=== PATIENT | male | born 1995 | race Caucasian/White ===

== ENCOUNTER 2017-01-20 03:10 | Emergency (ER) | payer OTHER ==
[~2017-01-20] VITALS: Ht 185.4 cm; Wt 95.2 kg
[~2017-01-20 03:10] MED LIST: AMOXICILLIN500 MG PO; IBUPROFEN600 MG PO; KEFLEX500 MG PO; MULTIVITAMINS1 EAC7 PO; NORCO 5-325 TA1 EACH PO; TYLENOL WITH C1 EACH PO
[2017-01-20] MEDS ORDERED: TRAMADOL HCL50 MG PO (03:27)
[2017-01-20] MEDS ORDERED: CEPHALEXIN500 MG PO (03:27)
== END 2017-01-20 03:39 | disposition home or self-care (01) ==
LOC: ED 03:10
DX: K08.89 Other specified disorders of teeth and supporting structures (principal)
CPT/HCPCS: 99283